=== PATIENT | male | born 1940 | race Caucasian/White ===

== ENCOUNTER 2016-11-30 13:54 | Inpatient (IN) | payer MEDICARE ==
[~2016-11-30] VITALS: Ht 180.3 cm; Wt 77.7 kg
[~2016-11-30 13:54] MED LIST: ALBUTERO1 NEB; ASPIRIN EC81 MG PO; ATORVASTATIN CA40 MG PO; BAYER ASPIRIN325 MG PO; BRILINTA90 MG PO; DIGOXIN0.125 MG PO; LISINOP/HCTZ1 TAB PO; PANTOPRAZOLE SO40 M1 PO; PREDNISONE10 MG PO; PROAIR HFA IN; ROBITUSSIN10 ML PO; SPIRIVA RE1.25 MCG/A IN; SYMBICORT1 AE1 IN; TAMSULOSIN HCL0.4 MG PO; TENORMIN50 MG PO; ULTRAM50 MG PO; XARELTO20 MG PO; ZITHROMAX500 MG PO; [UNRECOGNIZED DRUG - OTHER] PO
--- NOTE | 2016-11-30 14:32 | NUR ---
AT BEDSIDE TO ASSESS AND DISCUSS P.O.C..
[2016-11-30 15:05] LABS: HEMATOCRIT 35.5 % (39.0-50.0); HEMOGLOBIN 11.4 g/dl (14.0-18.0); IMMATURE GRANULOCYTES 1.1 % (0.0-1.0); MEAN CELL VOLUME 102.3 fL CALC (80.0-100.0); MEAN CORPUSCULAR HGB 32.9 pG CALC (26.0-32.0); MEAN CORPUSCULAR HGB CONC 32.1 g/L CALC (32.0-36.0); NEUT# 11.71 thou/uL (1.82-7.42); RED BLOOD COUNT 3.47 mill/uL (4.70-6.10); RED CELL DISTRI WIDTH 15.5 % (11.5-15.5)
[2016-11-30] MEDS ORDERED: DIGITEK0.125 M1 (15:08)
[2016-11-30] MEDS ORDERED: PROBIOTIC1 TAB PO (15:12)
[2016-11-30] MEDS ORDERED: SAW PALMETTO1 CAP (15:12)
[2016-11-30 15:20] LABS: INTERNATIONAL NORMALIZED RATIO 1.5 RATIO (0.7-1.3); PROTHROMBIN TIME 16.5 SECONDS (9.0-12.5)
[2016-11-30 15:24] LABS: ALBUMIN 3.4 g/dL (3.2-5.0); ALKALINE PHOSPHATASE 131 u/l (38-126); ANION GAP 11 (6-22 (CALC)); BILIRUBIN, TOTAL 0.8 mg/dL (0.0-1.4); BUN 28 mg/dL (8-23); BUN/CREATININE RATIO 26 (12-20 (CALC)); CALCIUM 9.3 mg/dL (8.4-10.2); CARBON DIOXIDE 33 mmol/l (22-30); CHLORIDE 104 mmol/l (95-108); CREATININE 1.1 mg/dL (0.7-1.3); GFR > 60 ML/MIN (>=60 (CALC)); GFR FOR AFR.AMER. > 60 ML/MIN (>=60 (CALC)); GLUCOSE 138 mg/dL (82-115); POTASSIUM 4.5 mmol/l (3.5-5.1); SGOT/AST 25 u/l (19-48); SGPT/ALT 44 u/l (11-66); SODIUM 143 mmol/l (137-146); TOTAL PROTEIN 6.9 g/dL (6.3-8.2)
--- NOTE | 2016-11-30 15:30 | NUR ---
Daughter AT BEDSIDE, Pt APPEARs COMFORTABLE, RESTING /c OU OPEN
[2016-11-30 15:36] LABS: MYOGLOBIN 45 ng/mL (0 - 121)
--- NOTE | 2016-11-30 16:18 | NUR ---
AT BEDSIDE TO REASSESS AND DISCUSS P.O.C.. Daughter PRESENT
--- NOTE | 2016-11-30 17:00 | NUR ---
IN TO DISCUSS POC, Dr WILL ADMIT. FULL UNDERSTQANDING RETURNED
[2016-11-30 17:35] LABS: URINE BILIRUBIN - DIPSTICK NEGATIVE (NEGATIVE); URINE BLOOD DIPSTICK NEGATIVE (NEGATIVE); URINE CLARITY CLEAR; URINE COLOR YELLOW; URINE GLUCOSE - DIPSTICK NEGATIVE (NEGATIVE); URINE KETONE NEGATIVE (NEGATIVE); URINE LEUK ESTERASE NEGATIVE (NEGATIVE); URINE NITRITE - DIPSTICK NEGATIVE (Negative); URINE PROTEIN - DIPSTICK TRACE mg/dL (NEG-TRACE); URINE SPECIFIC GRAVITY 1.025; URINE UROBILINOGEN - DIPSTICK 0.2 E.U./dL (0.2)
--- NOTE | 2016-11-30 18:04 | NUR ---
ATTEMPT TO CALL REPORT
[2016-11-30 18:20] VITALS: BP 114/72
--- NOTE | 2016-11-30 19:00 | NUR ---
RECEIVED REPORT ON PATIENT FROM OFF GOING NURSE. PATIENT RESTING IN BED IN NO APPARENT DISCOMFORT. DAUGHTER VISITING WITH PATIENT AT THIS TIME.
[2016-11-30 21:05] VITALS: BP 92/56
[2016-11-30 21:10] VITALS: BP 99/66
[2016-11-30 21:12] VITALS: BP 115/78
[2016-11-30 23:25] VITALS: BP 100/65
--- NOTE | 2016-12-01 | NUR ---
PATIENT RESTING QUIETLY. NO ACUTE DISTRESS NOTED.
--- NOTE | 2016-12-01 04:00 | NUR ---
PATIENT RESTING COMFORTABLY AT THIS TIME. NO ACUTE DISTRESS NOTED.
[2016-12-01 04:38] VITALS: BP 102/61
[2016-12-01 06:18] LABS: IMMATURE GRANULOCYTES 0.6 % (0.0-1.0); MEAN CELL VOLUME 102.9 fL CALC (80.0-100.0); MEAN CORPUSCULAR HGB 33.1 pG CALC (26.0-32.0); MEAN CORPUSCULAR HGB CONC 32.1 g/L CALC (32.0-36.0); NEUT# 5.24 thou/uL (1.82-7.42); RED BLOOD COUNT 2.72 mill/uL (4.70-6.10); RED CELL DISTRI WIDTH 15.6 % (11.5-15.5)
[2016-12-01 06:36] LABS: ANION GAP 9 (6-22 (CALC)); BUN 28 mg/dL (8-23); BUN/CREATININE RATIO 28 (12-20 (CALC)); CARBON DIOXIDE 30 mmol/l (22-30); CHLORIDE 107 mmol/l (95-108); GFR > 60 ML/MIN (>=60 (CALC)); GFR FOR AFR.AMER. > 60 ML/MIN (>=60 (CALC)); GLUCOSE 85 mg/dL (82-115); POTASSIUM 3.8 mmol/l (3.5-5.1); SODIUM 143 mmol/l (137-146)
[2016-12-01 07:30] VITALS: BP 104/53
--- NOTE | 2016-12-01 07:30 | NUR ---
PT ALERT AND ORIENTED RETING IN BED, SLIGHTLY RED DEVIL, AM ASESSMENT COMPLETED SEE INTERVENTIONS, SKIN DR AND FRAGILE WITH BREAKDOWN NOTED TO COOCYX, PT ADMITS TO SITTI IN A CHAIR ALL THE TIME AT HOME STATES HE HAS DIFFICULTY STANDING AND IS UNABLE TO AMBULATE RELATED TO INCREASING WEKANESS, PT POORLY MOTIVATED TO INCREASE ACTIVITY, STATING "WELL I ALREADY KNOW I CAN'T DO IT SO...." EXPLAINED TO PT THAT EVEN THOUGH HE CAN'T DO IT NOW HE NEEDS TO CONTINEU TO ATTEMPT AND PARTICIPATE TO IMPROVE STRENGTH ETC... PT APPEARS DISINTERESTED IN CONVERSATION, SAFETY MEASURES REINFORCED, IVF CONTINUE AT PRESCRIBED RATE, WILL CONTINUE TO MONITOR.
--- NOTE | 2016-12-01 08:00 | NUR ---
DAUGHTER CALLED FOR UPDATE STATING THAT SHE FEELS LIKE "DAD HAS JUST PROGRESSIVELY GOTTEN WORSE AND WEAKER SINCE HE HAD STENTS PLACED IN SEPTEMBER", STATES SHE WILL CHECK IN AGAIN LATER TODAY
--- NOTE | 2016-12-01 09:15 | NUR ---
IN TO SEE PT, PLAN OF CARE DISCUSED INCLDUING REHAB PLACEMENT POST HOSPITAL STAY.
--- NOTE | 2016-12-01 10:15 | NUR ---
PT EDWNI INTERMITTENLY, NO NEW COMPLAINTS OFFERED, WILL CONTINUE TO MONITOR
--- NOTE | 2016-12-01 11:37 | NUR ---
PT RESTING INBED, DOZES INTERMITTENLY AROUSES EASILY TO LOUDER VERBAL STIMULI (RELATED TO [place]) DENIES PAIN AT THIS TIME, AGAIN ENCOURAGED TO INCREASE ACTIVITY, (STATES "I WILL LATER I'M TO TIRED RIGHT NOW") WILL CONTINUE TO MONITOR
[2016-12-01 12:13] VITALS: BP 110/60
--- NOTE | 2016-12-01 16:22 | NUR ---
PT RESTING IN BED, DECLINED ADL CARE STATING TODAY HE IS JUST TO TIRED BUT WILL GET SHOWER TOMORROW, ENCOURAGED TO REPOSTION FREQURNTLY TO PREVENT FURTHER BREAKDONW, WILL CONTINUE TO MONITOR.CALL JULIAN WITHIN REACH,
[2016-12-01 16:30] VITALS: BP 100/56
[2016-12-01 20:16] VITALS: BP 97/61
--- NOTE | 2016-12-01 20:50 | NUR ---
PT RESTING IN SEMI FOWLERS POSITION;IV FLUIDS TO RAC INFUSING WELL;02 @ 2 LITERS VIA NC;PURSED LIP BREATHING TX EDUCATED AND PT VERBALIZES UNDERSTANDING;PT DENIES ANY PAIN OR DISCOMFORTS AT THIS TIME;TELE MONITOR IN PLACE READING AFIB 95;SKIN TEAR NOTED TO LEFT FOREARM PROJECT MANAGEMENT INSTRUCTOR;PRODUCTIVE COUGH NOTED;PT DENIES ANY OTHER NEEDS AT THIS TIME;URINAL AT BEDSIDE;PT RE-EDUCATED ON ROOM AND CALL LIGHT SYSTEM AND VERBALIZES UNDERSTANDING;BED IN LOWEST POSITION WITH CALL LIGHT IN REACH;WILL CONTINUE TO MONITOR
--- NOTE | 2016-12-01 23:30 | NUR ---
PT APPEARS TO BE SLEEPING IN SUPINE POSITION;IV FLUIDS INFUSING WELL;NO S/S OF DISTRESS NOTED;RESPIRATIONS EVEN AND UNLABORED ON 02 @ 2 VIA NC;URINAL AT BEDSIDE;BED IN LOWEST POSITION WITH CALL LIGHT IN REACH;WILL CONTINUE TO MONITOR
[2016-12-02] VITALS (9 sets, daily range): BP systolic 106–127; BP diastolic 49–72
--- NOTE | 2016-12-02 04:04 | NUR ---
PT RESTING IN SUPINE POSITION;VS OBTAINED BY ROSALIA CHAPPELL;PT REFUSES RE-POSITIONING;PT EDUCATED ON THE IMPORTANT OF BEING RE-POSITIONED ESPECIALLY WITH HAVING PRESSURE ULCERS;PT CONTINUES TO REFUSE;PT DENIES ANY PAINS;IV FLUIDS INFUSING WELL;BED IN LOWEST POSITION WITH CALL LIGHT IN REACH;WILL CONTINUE TO MONITOR
[2016-12-02 05:35] LABS: HEMATOCRIT 24.3 % (39.0-50.0); HEMOGLOBIN 7.7 g/dl (14.0-18.0); IMMATURE GRANULOCYTES 0.7 % (0.0-1.0); MEAN CELL VOLUME 102.5 fL CALC (80.0-100.0); MEAN CORPUSCULAR HGB 32.5 pG CALC (26.0-32.0); MEAN CORPUSCULAR HGB CONC 31.7 g/L CALC (32.0-36.0); NEUT# 4.49 thou/uL (1.82-7.42); RED BLOOD COUNT 2.37 mill/uL (4.70-6.10); RED CELL DISTRI WIDTH 15.6 % (11.5-15.5)
[2016-12-02 06:01] LABS: ANION GAP 7 (6-22 (CALC)); BUN 22 mg/dL (8-23); BUN/CREATININE RATIO 27 (12-20 (CALC)); CALCIUM 7.8 mg/dL (8.4-10.2); CARBON DIOXIDE 28 mmol/l (22-30); CHLORIDE 108 mmol/l (95-108); CREATININE 0.8 mg/dL (0.7-1.3); GFR > 60 ML/MIN (>=60 (CALC)); GFR FOR AFR.AMER. > 60 ML/MIN (>=60 (CALC)); GLUCOSE 96 mg/dL (82-115); POTASSIUM 3.8 mmol/l (3.5-5.1); SODIUM 139 mmol/l (137-146)
--- NOTE | 2016-12-02 06:40 | NUR ---
PT HAS NOT VOIDED ALL SHIFT;PT ENCOURAGED TO VOID;PT AMBULATED TO BEDSIDE COMMODE WITH 2 PERSON ASSIST AND WEAK GAIT;NO URINE OBTAINED;PT REFUSED ASSISTED BATH AT THIS TIME;BLADDER SCAN PREFORMED AND A RESIDUAL OF 470CC OBTAINED; NOTIFED AT THIS TIME;VOICEMAIL LEFT;WILL CONTINUE TO MONITOR
--- NOTE | 2016-12-02 06:45 | NUR ---
RBTO FROM TO STRAIGHT CATH PT AT THIS TIME;WILL CONTINUE TO MONITOR
--- NOTE | 2016-12-02 07:00 | NUR ---
SHIFT CHANGE REPORT FROM TERRENCE OLIVO AWAKE ALERT AND ORIENTED RESTING N BED, IVF INFUSING, NO C/O DISCOMFORT AT THIS TIME, CALL JULIAN IN REACH, WILL CONTINUE TO MONITOR.
--- NOTE | 2016-12-02 09:00 | NUR ---
PT ALERT AND ORIENTED, POC EXPLAINED TO PT, PLEASANTLY COOPERATIVE, GAYE CARE DONE, #V 16 HAMMER CATHETER PLACED PER ORDER, BARRIER CREAM APPLIED TO COCCYX/GLUTEUS AREA, REPOSITIONED ON R. SIDE AND ENCOURAGED TO KEEP OFF BACK. WILL CONTINUE TO MONITOR, CALL JULIAN IN REACH.
--- NOTE | 2016-12-02 09:30 | NUR ---
PT VOIDED 200ML BEFORE CATHETER PLACEMENT, 500ML OUT POST CATH INSERTION, DR CARUSO ORDERED CATHETER TO REMAIN UNTIL FURTHER NOTICE.
--- NOTE | 2016-12-02 15:35 | NUR ---
RESTING IN BED AT THIS TIME, INFORMED OF PRBC TRANSFUSION ORDER AND GAVE WRITTEN CONSENT, TRANSFUSION INITIATED AT THIS TIME, PT FULLY COOPERATIVE, CALL JULIAN IN REACH.
--- NOTE | 2016-12-02 20:03 | NUR ---
PT IN BED WATCHING TV, RESPIRATIONS EVEN AND UNLABORED ON RA, DENIES PAIN OR DISCOMFORT. NS INFUSING TO RW AT 50CC/HR. CALL LIGHT AND URINAL AT BED SIDE.
--- NOTE | 2016-12-02 20:20 | NUR ---
RESTING IN BED WATCHING TV, RESPIRATIONS EVEN AND UNLABORED ON O2 @2L VIA NC. REPOSITIONED TO RIGHT SIDE, TEACHING DONE R/T REPOSITIONING EVERY TWO HOURS. NS AT KVO INFUSING TO LFA, DENIES PAIN. ENCOURAGED TO USE CALL LIGHT FOR ASSISTANCE. WILL CONTINUE TO MONITOR.
--- NOTE | 2016-12-02 23:06 | NUR ---
REPOSITIONED TO LEFT SIDE. OFFERS NO CONCERNS. CALL LIGHT IN REACH.
--- NOTE | 2016-12-03 00:58 | NUR ---
REPOSITIONED TO LEFT SIDE.
[2016-12-03 03:33] VITALS: BP 121/74
--- NOTE | 2016-12-03 04:20 | NUR ---
MORNING BLOOD WORK DRAWN BY SOLAR ENERGY SALES SPECIALIST TOLERATED WELL.
[2016-12-03 05:21] LABS: HEMATOCRIT 27.9 % (39.0-50.0); IMMATURE GRANULOCYTES 0.8 % (0.0-1.0); MEAN CELL VOLUME 98.2 fL CALC (80.0-100.0); MEAN CORPUSCULAR HGB 31.7 pG CALC (26.0-32.0); MEAN CORPUSCULAR HGB CONC 32.3 g/L CALC (32.0-36.0); NEUT# 4.48 thou/uL (1.82-7.42); RED BLOOD COUNT 2.84 mill/uL (4.70-6.10); RED CELL DISTRI WIDTH 15.9 % (11.5-15.5)
[2016-12-03 05:42] LABS: ANION GAP 8 (6-22 (CALC)); BUN 14 mg/dL (8-23); BUN/CREATININE RATIO 18 (12-20 (CALC)); CALCIUM 8.1 mg/dL (8.4-10.2); CARBON DIOXIDE 29 mmol/l (22-30); CHLORIDE 107 mmol/l (95-108); CREATININE 0.8 mg/dL (0.7-1.3); GFR > 60 ML/MIN (>=60 (CALC)); GFR FOR AFR.AMER. > 60 ML/MIN (>=60 (CALC)); GLUCOSE 93 mg/dL (82-115); POTASSIUM 4.1 mmol/l (3.5-5.1); SODIUM 140 mmol/l (137-146)
[2016-12-03 08:20] VITALS: BP 124/83
--- NOTE | 2016-12-03 08:20 | NUR ---
ASSESSMENT IS COMPLETED: IV SITE IS FREE FROM REDNES OR EDEMA. CONTINUE TO OSBERVE AND MONOITOR
[2016-12-03 10:07] VITALS: BP 124/83
[2016-12-03] MEDS ORDERED: XARELTO15 MG PO (10:15)
[2016-12-03] MEDS ORDERED: ZESTRIL PO (10:17)
[2016-12-03] MEDS ORDERED: [UNRECOGNIZED DRUG - OTHER] PO (10:17)
--- NOTE | 2016-12-03 12:00 | NUR ---
PT IS RESTING IN BED WITH NO DISTRESS NOTED. IV SITE IN PLACE NO REDNES OR EDEMA.
--- NOTE | 2016-12-03 12:55 | NUR ---
PT WAS LAYING IN BED AND DID NOT SEEM TO UNDERSTAND WHAT I WAS SAYING. HE MENTIONED HE WAS BEING TRANSFERED SOMEWHERE AND WANTED ME TO CALL HIS DAUGTER WHICH I MADE THE NURSES AWARE.
--- NOTE | 2016-12-03 15:19 | NUR ---
IV SITE DISCONTINEUD CATHETER INTACT.TELE MONITOR DISCONTINUED . DISCHARGE PAPERS GIVEN TO RAVI FROM [facility],
--- NOTE | 2016-12-03 15:21 | NUR ---
HAMMER LEFT IN PLACE PT WAS HAVING ISSUES WITH VOIDING.
--- NOTE | 2016-12-03 15:39 | NUR ---
GAVE REPORT TO LORE FOLEY. CONTINUE TO OSBERVE AND MONITOR. INFORMED THE NURSE OF THE HAMMER AND DECUB ON HIS COCCYX.
--- NOTE | 2016-12-03 15:41 | NUR ---
Discharge instructions given. Patient verbalizes understanding of same. Discharged in stable condition via Wheelchair to R with *Other. All belongings sent with pt.
== END 2016-12-03 15:13 | DRG 811 ==
LOC: ENPENDDIS → ED 13:54 → ED-I 14:20 → ED 17:49 → MS2 17:50
PROVIDERS: Emergency Medicine; ADMIT Internal Medicine; ATTEND Internal Medicine
PROC: 3E0234Z Introduction of Serum, Toxoid and Vaccine into Muscle, Percutaneous Approach (ICD-10-PCS; principal; 2016-12-01)
PROC: 30233N1 Transfusion of Nonautologous Red Blood Cells into Peripheral Vein, Percutaneous Approach (ICD-10-PCS; 2016-12-02)
PROC: 0T9B70Z Drainage of Bladder with Drainage Device, Via Natural or Artificial Opening (ICD-10-PCS; 2016-12-02)
DX: D50.0 Iron deficiency anemia secondary to blood loss (chronic) (principal); J96.21 Acute and chronic respiratory failure with hypoxia; L89.152 Pressure ulcer of sacral region, stage 2; G91.9 Hydrocephalus, unspecified; N18.3 Chronic kidney disease, stage 3 (moderate); G93.89 Other specified disorders of brain; K62.5 Hemorrhage of anus and rectum; R04.0 Epistaxis; N48.89 Other specified disorders of penis; I12.9 Hypertensive chronic kidney disease with stage 1 through stage 4 chronic kidney disease, or unspecified chronic kidney disease; T45.515A Adverse effect of anticoagulants, initial encounter; I25.10 Atherosclerotic heart disease of native coronary artery without angina pectoris; I48.91 Unspecified atrial fibrillation; J44.9 Chronic obstructive pulmonary disease, unspecified; N40.1 Benign prostatic hyperplasia with lower urinary tract symptoms; R33.8 Other retention of urine; S20.219D Contusion of unspecified front wall of thorax, subsequent encounter; V89.2XXD Person injured in unspecified motor-vehicle accident, traffic, subsequent encounter; Z23 Encounter for immunization; Z87.891 Personal history of nicotine dependence; Z98.2 Presence of cerebrospinal fluid drainage device; Z99.81 Dependence on supplemental oxygen; Z95.5 Presence of coronary angioplasty implant and graft
CPT/HCPCS: P9016

== ENCOUNTER 2017-08-15 17:18 | Emergency (ER) | payer OTHER, MEDICARE ==
[~2017-08-15] VITALS: Ht 180.3 cm; Wt 55.0 kg
[~2017-08-15 17:18] MED LIST changes: +ASPIRIN ADULT L81 M2 PO; +B-121000 MC4 PO; +CYMBALTA60 MG PO; +DIGITEK0.125 M1; +FINASTERIDE5 MG PO; +FLONASE AL50 MCG/ACT NAB; +LANOXIN0.125 MG PO; +LISINOPRIL5 MG PO; +LOPRESSOR25 MG PO; +MULTIVITAMI1 PO; +PLAVIX75 MG PO; +PROBIOTIC1 TAB PO; +PROVENTIL0.083 % IN; +SAVAYSA30 MG PO; +SAVAYSA60 MG PO; +SAW PALMETTO1 CAP; +SPIRIVA RE2.5 MCG/AC IN; +XARELTO15 MG PO; +ZESTRIL PO; +[UNRECOGNIZED DRUG - OTHER] PO
[2017-08-15 17:54] LABS: HEMATOCRIT 26.2 % (39.0-50.0); HEMOGLOBIN 8.4 g/dl (14.0-18.0); IMMATURE GRANULOCYTES 0.4 % (0.0-1.0); MEAN CORPUSCULAR HGB 32.1 pG CALC (26.0-32.0); MEAN CORPUSCULAR HGB CONC 32.1 g/L CALC (32.0-36.0); NEUT# 4.94 thou/uL (1.82-7.42); RED BLOOD COUNT 2.62 mill/uL (4.70-6.10)
[2017-08-15 18:01] LABS: ALBUMIN 3.3 g/dL (3.2-5.0); BILIRUBIN, TOTAL 0.5 mg/dL (0.0-1.4); CALCIUM 8.8 mg/dL (8.4-10.2); CREATININE 1.7 mg/dL (0.7-1.3); TOTAL PROTEIN 6.4 g/dL (6.3-8.2)
[2017-08-15 18:03] LABS: ACT PARTIAL THROMBO TIME 27.6 SECONDS (20.0-32.5); INTERNATIONAL NORMALIZED RATIO 1.2 RATIO (0.7-1.3); PROTHROMBIN TIME 12.9 SECONDS (9.0-12.5)
[2017-08-15 18:42] VITALS: BP 173/86
== END 2017-08-15 19:48 | disposition home or self-care (01) | DRG 813 ==
LOC: ED 17:18
PROVIDERS: Emergency Medicine
DX: R23.3 Spontaneous ecchymoses (principal); I48.91 Unspecified atrial fibrillation; R60.9 Edema, unspecified; Z79.82 Long term (current) use of aspirin

== ENCOUNTER 2017-12-01 08:17 | Inpatient (IN) | payer OTHER, MEDICARE ==
[~2017-12-01] VITALS: Ht 180.3 cm; Wt 58.1 kg
[~2017-12-01 08:17] MED LIST changes: +AMLODIPINE2.5 MG PO; +AVODART0.5 MG PO; +ELIQUIS5 MG PO
[2017-12-01 09:46] LABS: HEMATOCRIT 36.6 % (39.0-50.0); HEMOGLOBIN 12.2 g/dl (14.0-18.0); IMMATURE GRANULOCYTES 0.4 % (0.0-1.0); MEAN CELL VOLUME 96.3 fL CALC (80.0-100.0); MEAN CORPUSCULAR HGB 32.1 pG CALC (26.0-32.0); MEAN CORPUSCULAR HGB CONC 33.3 g/L CALC (32.0-36.0); NEUT# 8.62 thou/uL (1.82-7.42); RED BLOOD COUNT 3.8 mill/uL (4.70-6.10); RED CELL DISTRI WIDTH 12.8 % (11.5-15.5)
[2017-12-01 09:50] LABS: URINE BLOOD DIPSTICK LARGE (NEGATIVE); URINE COLOR RED; URINE GLUCOSE - DIPSTICK NEGATIVE (NEGATIVE); URINE KETONE TRACE mg/dL (NEGATIVE); URINE LEUK ESTERASE TRACE (NEGATIVE); URINE PH 5.5 (4.5-8.0); URINE PROTEIN - DIPSTICK >=300 mg/dL (NEG-TRACE); URINE UROBILINOGEN - DIPSTICK 0.2 E.U./dL (0.2)
[2017-12-01 09:53] LABS: URINE BILIRUBIN - DIPSTICK NEGATIVE (NEGATIVE); URINE CLARITY TURBID; URINE NITRITE - DIPSTICK NEGATIVE (Negative)
[2017-12-01 09:54] LABS: URINE BACTERIA FEW hpf; URINE MUCUS FEW hpf (NONE-FEW); URINE RBC >100 RBC/hpf (0-5); URINE SQUAMOUS EPITHELIAL CELL FEW EPI/hpf (0-FEW)
[2017-12-01 10:00] LABS: ALBUMIN 3.7 g/dL (3.2-5.0); BILIRUBIN, TOTAL 0.6 mg/dL (0.0-1.4); CREATININE 2.7 mg/dL (0.7-1.3); TOTAL PROTEIN 7.2 g/dL (6.3-8.2)
[2017-12-01 10:01] LABS: INTERNATIONAL NORMALIZED RATIO 1.1 RATIO (0.7-1.3); PROTHROMBIN TIME 11.8 SECONDS (9.0-12.5)
[2017-12-01 10:07] LABS: POTASSIUM 5.4 mmol/l (3.5-5.1)
[2017-12-01 11:45] VITALS: BP 106/77
[2017-12-01 16:00] VITALS: BP 121/81
[2017-12-01 20:35] VITALS: BP 125/74
[2017-12-02] VITALS (10 sets, daily range): BP systolic 103–131; BP diastolic 59–77
[2017-12-02 05:33] LABS: RED BLOOD COUNT 2.84 mill/uL (4.70-6.10)
[2017-12-02 05:44] LABS: CREATININE 2.6 mg/dL (0.7-1.3); MAGNESIUM 1.8 mg/dL (1.6-2.3)
[2017-12-02 05:48] LABS: POTASSIUM 5.2 mmol/l (3.5-5.1)
[2017-12-02 06:08] LABS: HEMATOCRIT 28.4 % (39.0-50.0); HEMOGLOBIN 9.1 g/dl (14.0-18.0)
[2017-12-03 04:30] VITALS: BP 127/71
[2017-12-03 06:01] LABS: CREATININE 2.5 mg/dL (0.7-1.3)
[2017-12-03 06:03] LABS: HEMATOCRIT 25.5 % (39.0-50.0); HEMOGLOBIN 8.4 g/dl (14.0-18.0); IMMATURE GRANULOCYTES 0.5 % (0.0-1.0); MEAN CORPUSCULAR HGB 32.9 pG CALC (26.0-32.0); MEAN CORPUSCULAR HGB CONC 32.9 g/L CALC (32.0-36.0); NEUT# 5.08 thou/uL (1.82-7.42); RED BLOOD COUNT 2.55 mill/uL (4.70-6.10); RED CELL DISTRI WIDTH 13.2 % (11.5-15.5)
[2017-12-03 06:08] LABS: POTASSIUM 5.3 mmol/l (3.5-5.1)
[2017-12-03 08:39] VITALS: BP 113/55
[2017-12-03 16:00] VITALS: BP 122/76
== END 2017-12-03 17:03 | disposition home or self-care (01) | DRG 908 ==
LOC: ED 08:17 → ED-I 10:05 → ED 10:33 → MS2 10:34
PROVIDERS: Emergency Medicine; Nurse Practitioner Family; Urology; ADMIT Internal Medicine; ATTEND Internal Medicine
PROC: 0T9B70Z Drainage of Bladder with Drainage Device, Via Natural or Artificial Opening (ICD-10-PCS; 2017-12-01)
PROC: 0W3R8ZZ Control Bleeding in Genitourinary Tract, Via Natural or Artificial Opening Endoscopic (ICD-10-PCS; principal; 2017-12-02)
PROC: 0TCB8ZZ Extirpation of Matter from Bladder, Via Natural or Artificial Opening Endoscopic (ICD-10-PCS; 2017-12-02)
DX: N99.820 Postprocedural hemorrhage of a genitourinary system organ or structure following a genitourinary system procedure (principal); G91.9 Hydrocephalus, unspecified; J96.11 Chronic respiratory failure with hypoxia; N17.9 Acute kidney failure, unspecified; D62 Acute posthemorrhagic anemia; R33.8 Other retention of urine; I48.91 Unspecified atrial fibrillation; R31.0 Gross hematuria; J43.9 Emphysema, unspecified; I12.9 Hypertensive chronic kidney disease with stage 1 through stage 4 chronic kidney disease, or unspecified chronic kidney disease; N18.3 Chronic kidney disease, stage 3 (moderate); F10.11 Alcohol abuse, in remission; I25.10 Atherosclerotic heart disease of native coronary artery without angina pectoris; H35.30 Unspecified macular degeneration; Y83.8 Other surgical procedures as the cause of abnormal reaction of the patient, or of later complication, without mention of misadventure at the time of the procedure; Z98.2 Presence of cerebrospinal fluid drainage device; Z95.5 Presence of coronary angioplasty implant and graft; Z87.891 Personal history of nicotine dependence; Z99.81 Dependence on supplemental oxygen; Z79.01 Long term (current) use of anticoagulants

== ENCOUNTER 2019-10-08 | Emergency (ER) | payer MEDICARE ==
[2019-10-08 13:23] LABS: HEMATOCRIT 43.9 % (39.0-50.0); HEMOGLOBIN 14.1 g/dl (14.0-18.0); IMMATURE GRANULOCYTES 0.3 % (0.0-5.0); MEAN CELL VOLUME 102.1 fL CALC (80.0-100.0); MEAN CORPUSCULAR HGB 32.8 pG CALC (26.0-32.0); MEAN CORPUSCULAR HGB CONC 32.1 g/L CALC (32.0-36.0); NEUT# 9.21 thou/uL (1.82-7.42); RED BLOOD COUNT 4.3 mill/uL (4.70-6.10)
[2019-10-08 13:46] LABS: ALBUMIN 3.9 g/dL (3.2-5.0); ALKALINE PHOSPHATASE 136 u/l (38-126); ANION GAP 16 (6-22 (CALC)); BILIRUBIN, TOTAL 0.6 mg/dL (0.0-1.4); BUN 59 mg/dL (8-23); BUN/CREATININE RATIO 22 (12-20 (CALC)); CARBON DIOXIDE 28 mmol/l (22-30); CHLORIDE 103 mmol/l (95-108); CREATININE 2.7 mg/dL (0.7-1.3); GFR 23 ML/MIN (>=60 (CALC)); GFR FOR AFR.AMER. 28 ML/MIN (>=60 (CALC)); MAGNESIUM 2.4 mg/dL (1.6-2.3); POTASSIUM 4.4 mmol/l (3.5-5.1); SGOT/AST 45 u/l (19-48); SODIUM 142 mmol/l (137-146); TOTAL PROTEIN 7.7 g/dL (6.3-8.2)
[2019-10-08] MEDS ORDERED: ALLOPURINOL100 MG PO (14:19)
[2019-10-08] MEDS ORDERED: ARTIFICIAL TEAR1 SOL (14:20)
[2019-10-08] MEDS ORDERED: BUMETANIDE1 MG PO (14:20)
[2019-10-08] MEDS ORDERED: IPRATROPIUM BR0.03 % (14:21)
[2019-10-08] MEDS ORDERED: LORATADINE10 M1 PO (14:22)
[2019-10-08 14:24] LABS: URINE BILIRUBIN - DIPSTICK NEGATIVE (NEGATIVE); URINE BLOOD DIPSTICK MODERATE (NEGATIVE); URINE COLOR YELLOW; URINE GLUCOSE - DIPSTICK NEGATIVE (NEGATIVE); URINE KETONE NEGATIVE (NEGATIVE); URINE LEUK ESTERASE NEGATIVE (NEGATIVE); URINE NITRITE - DIPSTICK NEGATIVE (Negative); URINE PROTEIN - DIPSTICK 100 mg/dL (NEG-TRACE); URINE SPECIFIC GRAVITY 1.025; URINE UROBILINOGEN - DIPSTICK 0.2 E.U./dL (0.2)
[2019-10-08 14:56] LABS: URINE SQUAMOUS EPITHELIAL CELL FEW EPI/hpf (0-FEW)
[2019-10-08 15:40] LABS: INTERNATIONAL NORMALIZED RATIO 1.1 RATIO (0.7-1.3); PROTHROMBIN TIME 11.4 SECONDS (9.0-12.5)
== END 2019-10-08 20:17 | disposition short-term general hospital (02) ==
PROVIDERS: Emergency Medicine
DX: T85.09XA Other mechanical complication of ventricular intracranial (communicating) shunt, initial encounter (principal); J44.9 Chronic obstructive pulmonary disease, unspecified; I12.9 Hypertensive chronic kidney disease with stage 1 through stage 4 chronic kidney disease, or unspecified chronic kidney disease; N18.4 Chronic kidney disease, stage 4 (severe); G91.9 Hydrocephalus, unspecified; Y83.8 Other surgical procedures as the cause of abnormal reaction of the patient, or of later complication, without mention of misadventure at the time of the procedure

== ENCOUNTER 2021-01-14 09:57 | Inpatient (IN) | payer OTHER, MEDICARE ==
[~2021-01-14] VITALS: Ht 188 cm; Wt 65.0 kg
[~2021-01-14 09:57] MED LIST changes: +ALLOPURINOL100 MG PO; +ARTIFICIAL TEAR1 SOL; +BUMETANIDE1 MG PO; +IPRATROPIUM BR0.03 %; +LORATADINE10 M1 PO
--- NOTE | 2021-01-14 09:57 | NUR ---
TO ROOM VIA EMS
--- NOTE | 2021-01-14 10:30 | NUR ---
DAUGHTER AT BEDSIDE
[2021-01-14 10:39] LABS: HEMATOCRIT 34.1 % (39.0-50.0); HEMOGLOBIN 10.7 g/dl (14.0-18.0); IMMATURE GRANULOCYTES 0.6 % (0.0-5.0); MEAN CELL VOLUME 102.1 fL CALC (80.0-100.0); MEAN CORPUSCULAR HGB CONC 31.4 g/dL CAL (32.0-36.0); NEUT# 10.84 thou/uL (1.82-7.42); RED BLOOD COUNT 3.34 mill/uL (4.70-6.10); RED CELL DISTRI WIDTH 14.6 % (11.5-15.5)
--- NOTE | 2021-01-14 10:43 | NUR ---
PATIENT POSITIONED FOR COMFORT. CALL JULIAN IN REACH
[2021-01-14 10:59] LABS: ACT PARTIAL THROMBO TIME 25.1 SECONDS (20.0-32.5); INTERNATIONAL NORMALIZED RATIO 1.2 RATIO (0.7-1.3)
[2021-01-14] MEDS ORDERED: IRON325 M1 PO (11:04)
[2021-01-14 11:05] LABS: ALBUMIN 3.5 g/dL (3.2-5.0); CREATININE 3.4 mg/dL (0.7-1.3); POTASSIUM 4.4 mmol/l (3.5-5.1); TOTAL PROTEIN 7.3 g/dL (6.3-8.2)
[2021-01-14 11:10] LABS: BILIRUBIN, TOTAL 0.6 mg/dL (0.0-1.4)
--- NOTE | 2021-01-14 12:00 | NUR ---
resting quietly. no distress. Feeling better
--- NOTE | 2021-01-14 13:37 | NUR ---
REPORT RECEIVED FROM ALAINA LORENZANA
--- NOTE | 2021-01-14 13:38 | NUR ---
report called in SBAR format to Landon FOLEY
--- NOTE | 2021-01-14 14:00 | NUR ---
PATIENT TO NUCLEAR SCAN AND THEN WILL GO VIA RN TRANNSPORT TO ROOM 272. PATIENT STABLE UPON DEPARTUR.
[2021-01-14 14:16] VITALS: BP 136/78
--- NOTE | 2021-01-14 14:16 | NUR ---
PT ARRIVED TO MED/SURG ROOM 272 IN STABLE CONDITION VIA STRETCHER ACCOMPANIED BY ALAINA ROSSI;PT ASSISTED TO BEDSIDE WITH X3 PERSON ASSIST;PT A&O X3, ORIENTED TO ROOM AND CALL LIGHT SYSTEM;WT AND VS OBTAINED AT THIS TIME;PT DENIES ANY CURRENT PAIN OR DISCOMFORTS,PAIN SCALE AND REPORTING EDUCATED;RESPIRATIONS SHALLOW ON O2 @ 3L VIA NC, PT IS OXYGEN DEPENDENT ON 2L;DIMINISHED LUNG SOUNDS NOTED;ABDOMEN SOFT ON PALPATION AND ACTIVE IN ALL 4 QUADRANTS,LAST BM 01/14/21;WEAK PEDAL PULSES;GENERALIZED BRUSING NOTED,SKIN OTHERWISE INTACT;TELE MONITORING IN PLACE;EMS #20G TO LFA FLUSHED AND PATENT,SITE APPEARS HEALTHY AND NS STARTED @50ML/HR PER ORDER;FALL AND ALLERGY BAND APPLIED;PT DENIES ANY ADDITIONAL NEEDS AT THIS TIME AND IS ENCOURAGED TO CALL FOR ASSISTANCE IF NEEDED;FALL PRECAUTIONS IN PLACE WITH BED IN THE LOWEST POSITION AND BED ALARM ON FOR SAFETY;CALL LIGHT IN REACH;WILL CONTINUE TO MONITOR
--- NOTE | 2021-01-14 14:42 | NUR ---
CRITICAL PROCALCITONIN RESULTS RECEIVED FROM LAB AT THIS TIME OF 0.339. SOBIA ANRP NOTIFIED AND NO NEW ORDERS RECEIVED.WILL CONTINUE TO MONITOR
--- NOTE | 2021-01-14 15:27 | NUR ---
PT RESTING IN SEMI FOWLERS POSITION WATCHING TV;RESPIRATIONS EVEN AND UNLABORED ON O2 @ 3L VIA NC;PT DENIES ANY CURRENT PAIN OR DISCOMFORTS;IV SITE PATENT INFUSING NS WITH EASE;PT ENCOURAGED TO CALL FOR ASSISTANCE IF NEEDED;FALL PRECAUTIONS REMAIN IN PLACE WITH CALL LIGHT IN REACH;WILL CONTINUE TO MONITOR
[2021-01-14] MEDS ORDERED: VITAMIN D1000 UNIT PO (15:33)
[2021-01-14] MEDS ORDERED: ELIQUIS2.5 MG PO (15:33)
[2021-01-14] MEDS ORDERED: DSS100 MG PO (15:34)
[2021-01-14] MEDS ORDERED: PRILOSEC20 MG/CAP PO (15:34)
--- NOTE | 2021-01-14 17:04 | NUR ---
MEAGAN AND SOBIA,ANRP AT BEDSIDE DISCUSSING POC.
[2021-01-14 17:15] LABS: URINE BILIRUBIN - DIPSTICK NEGATIVE (NEGATIVE); URINE BLOOD DIPSTICK LARGE (NEGATIVE); URINE COLOR YELLOW; URINE GLUCOSE - DIPSTICK NEGATIVE (NEGATIVE); URINE KETONE TRACE mg/dL (NEGATIVE); URINE PH 6.5 (4.5-8.0); URINE PROTEIN - DIPSTICK >=300 mg/dL (NEG-TRACE); URINE SPECIFIC GRAVITY 1.025; URINE UROBILINOGEN - DIPSTICK 0.2 E.U./dL (0.2)
[2021-01-14 17:29] LABS: URINE LEUK ESTERASE SMALL (NEGATIVE); URINE NITRITE - DIPSTICK NEGATIVE (Negative)
[2021-01-14 17:41] LABS: URINE AMORPH SEDIMENT FEW hpf (NONE-FER); URINE BACTERIA FEW hpf
[2021-01-14 19:00] VITALS: BP 132/89
--- NOTE | 2021-01-14 20:00 | NUR ---
PHYSICAL ASSESMENT COMPLETE. PT CURRENTLY DENIES PAIN OR DISCOMFORT. SCHEDULED MEDICATIONS AND PRN MEDICATION ADMINISTERED, SEE E-MAR. PT DENIES ANY NEEDS AT THIS TIME. PLAN OF CARE REVIEWED, PT DENIES QUESTIONS, VERBALIZES UNDERSTANDING. ITEMS WITHIN REACH, BED LOCKED IN LOW POSITION W/ BEDRAILS UP X2. CALL JULIAN WITHIN REACH, AGREES TO CALL PRN.
[2021-01-15] VITALS (7 sets, daily range): BP systolic 114–148; BP diastolic 60–91
--- NOTE | 2021-01-15 01:21 | NUR ---
PT LAYING IN BED WITH EYES CLOSED, APPEARS TO BE SLEEPING, APPEARS COMFORTABLE AND IN NO DISTRESS. RESPIRATIONS REGULAR AND UNLABORED. ITEMS REMAIN WITHIN REACH, CALL JULIAN REMAINS WITHIN REACH. BED REMAINS LOCKED AND IN LOW POSITION WITH BEDRAILS UP X2. WILL CONTINUE TO MONITOR.
--- NOTE | 2021-01-15 03:53 | NUR ---
PT RESTING IN BED, NO SIGNS OF DISTRESS NOTED, RESP EVEN AND UNLABORED. PT VOICES NO NEEDS OR COMPLAINTS AT THIS TIME. CALL LIGHT IN REACH, CONTINUE TO MONITOR.
[2021-01-15 06:00] LABS: HEMATOCRIT 30.4 % (39.0-50.0); HEMOGLOBIN 9.3 g/dl (14.0-18.0); MEAN CELL VOLUME 102.4 fL CALC (80.0-100.0); MEAN CORPUSCULAR HGB 31.3 pG CALC (26.0-32.0); MEAN CORPUSCULAR HGB CONC 30.6 g/dL CAL (32.0-36.0); RED BLOOD COUNT 2.97 mill/uL (4.70-6.10); RED CELL DISTRI WIDTH 14.4 % (11.5-15.5)
[2021-01-15 06:24] LABS: CHOLESTEROL HDL RATIO 2.5 (<4.4 (CALC)); CREATININE 3.6 mg/dL (0.7-1.3); MAGNESIUM 2.4 mg/dL (1.6-2.3); POTASSIUM 4.7 mmol/l (3.5-5.1)
--- NOTE | 2021-01-15 07:45 | NUR ---
REPORT RECEIVED FROM ALAINA BURGESS. PT RESTING IN BED SEMI FOWLERS;ALERT AND ORIENTED; HARD OF HEARING. DENIES PAIN.RESPIRATIONS EVEN AND UNLABORED ON OXYGEN 2L VIA NC; HOME DEPENDENT. IV FLUIDS INFUSING WITHOUT DIFFICULTY; IV SITE APPEARS HEALTHY. TELE ON. POC REVIEWED. PT ENCOURAGED TO VERBALIZE CONCERNS; STATES UNDERSTANDING.SAFETY MEASURES IN PLACE. CALL LIGHT WITHIN REACH.
--- NOTE | 2021-01-15 10:08 | NUR ---
EMS SITE REMOVED; CATH TIP INTACT; P TOLERATED WELL.NEW #20G IV STARTED TO RAC; NORMAL SALINE CONTINUES TO INFUSE AT 50 ML/HR.
--- NOTE | 2021-01-15 10:11 | NUR ---
AND NILE RAMSAY AT BEDSIDE.
--- NOTE | 2021-01-15 10:18 | NUR ---
PHYSICAL THERAPY AT BEDSIDE.
--- NOTE | 2021-01-15 10:44 | NUR ---
VERY SOB WITH EXERTION. INCONTINENT OF BOWEL MOVEMENT; PARTIAL BATH PROVIDED.
--- NOTE | 2021-01-15 12:23 | NUR ---
SITTING UP IN HIGH FOWLERS EATING LUNCH; NO REQUESTS OR CONCERNS AT THIS TIME. CALL LIGHT WITHIN REACH.
--- NOTE | 2021-01-15 13:42 | NUR ---
DAUGHTER AT BEDSIDE.
[2021-01-16 04:15] VITALS: BP 119/70
[2021-01-16 05:07] LABS: HEMATOCRIT 27.3 % (39.0-50.0); HEMOGLOBIN 8.5 g/dl (14.0-18.0); MEAN CELL VOLUME 101.9 fL CALC (80.0-100.0); MEAN CORPUSCULAR HGB 31.7 pG CALC (26.0-32.0); MEAN CORPUSCULAR HGB CONC 31.1 g/dL CAL (32.0-36.0); RED BLOOD COUNT 2.68 mill/uL (4.70-6.10); RED CELL DISTRI WIDTH 14.6 % (11.5-15.5)
[2021-01-16 05:17] LABS: MAGNESIUM 2.4 mg/dL (1.6-2.3); POTASSIUM 4.2 mmol/l (3.5-5.1)
[2021-01-16 07:20] VITALS: BP 133/75
--- NOTE | 2021-01-16 07:30 | NUR ---
ASSESSMENT IS COMPLETED: IV SITE IS FREE FROM REDNESS OR EDEMA. HR IS REG,PULSES ARE STRONG X4, ABD IS SOFT WITH ACTIVE BS. BREATH SOUNDS ARE CLEAR,AND DIMINISHED BILATERALLY, TELE MONITOR IN PLACE. PT IS SITTING IN THE CHAIR.,
--- NOTE | 2021-01-16 07:51 | NUR ---
ADMINISTERED PRN AEROSOLIZED BRONCHODILATOR THERAPY. PT RAGINI WELL. NAD. VSS. HEALTH PROGRAM DIRECTOR TO MONITOR.
--- NOTE | 2021-01-16 10:26 | NUR ---
SPOKE WITH DAUGHTER RE: AVODART (DUTASTERIDE). WILL BRING WITH HER AT TIME OF VISIT.
[2021-01-16 11:00] VITALS: BP 147/94
--- NOTE | 2021-01-16 12:00 | NUR ---
PT IS RELAXING IN THE CHAIR., NO DISTRESS NOTED. READY TO GO BACK TO BED, IV SITE IS FREE FROM REDNESS OR EDEMA. CONTINUE TO OBSERVE AND MONITOR.
--- NOTE | 2021-01-16 13:32 | NUR ---
SPOKE WITH US THE TECH MAY OR MAYNOT BE IN TONIGHT. MEDICATION FROM HOME BROUGHT IN
--- NOTE | 2021-01-16 14:38 | NUR ---
FAMILY WILL BRING DENTURE CREAM AND INQUIRED ABOUT THROAT LOZENGES
[2021-01-16 14:56] VITALS: BP 137/87
--- NOTE | 2021-01-16 14:57 | NUR ---
ENTRY LEVEL PROGRAMMER ADMIN PRN NEB. PT RAGINI WELL AT THIS TIME. NAD. VSS. PT C C/O SOB. STATES HE FEELS BETTER NOW. ENTRY LEVEL PROGRAMMER TO MONITOR.
[2021-01-16 19:25] VITALS: BP 152/81
--- NOTE | 2021-01-16 20:00 | NUR ---
PT IN BED AT TIME OF ASSESSMENT, ASSESSMENT COMPLETED, PLEASE SEE DCUMENTATION. PT HAS BEEN RUNNING A HIGH HEART RATE ALL DAY, PT IS A POOR HISTORIAN AND ISN'T ABLE TO REMEBER HIS NORMAL RESTING HR. LATEST TELE READING SHOWS AFIB 124BPM. PT DENIES ANY SYMPTOMS RELATED TO HR, INCLUDING, SOB, PALPITATIONS, AND/OR CHEST PAIN. WILL MONITOR.
--- NOTE | 2021-01-16 23:00 | NUR ---
THIS NURSE RECIVED CALL FROM ER INDICATING PT HAS A HEART RATE BETWEEN 120-130'S AFIB RVR. NOTIFIED PHYSICIAN OF HR AND RVR, NEW ORDER RECEIVED FOR ONE ADDITIONAL DOSE OF LOPRESSOR 25MG OLGA LIDIA AND INDICATED HE WILL REEVALUATE FOR MED ADJUSTMENTS TOMORROW. ORDER WRITTEN AND FAXED TO PHARMACY. WILL MONITOR PT FOR ANY COMPLICATIONS
[2021-01-17] VITALS: BP 136/89
--- NOTE | 2021-01-17 00:15 | NUR ---
OF MIDNIGHT TELE READING PT IS NOW RUNNING AFIB 116. MEDICATION, LOPRESSOR, WAS JUST ADMINSTERED AT 2330. WILL CHECK VITALS AGAIN AT 0030 TO CHECK FOR EFFETIVENESS OF MEDICATION.
[2021-01-17 00:30] VITALS: BP 136/83
--- NOTE | 2021-01-17 00:30 | NUR ---
PT VS RECHECKED AND PULSE IS NOW AT 188 BPM. WILL REEVALUATE ON 399 TELE READING
[2021-01-17 03:30] VITALS: BP 137/86
--- NOTE | 2021-01-17 04:17 | NUR ---
PT RESTING COMFORTABLY IN BED WITH EYES CLOSED. O2 REMAINS AT 2L/MIN VIA NC. NO COMPLAINTS VOICED. DENIES PAIN. SAFETY PRECAUTIONS IN PLACE, BED IN LOWEST POSITION, CALL LIGHT WITHIN REACH. WILL MONITOR
[2021-01-17 04:53] LABS: HEMATOCRIT 26.4 % (39.0-50.0); HEMOGLOBIN 8.2 g/dl (14.0-18.0); IMMATURE GRANULOCYTES 0.7 % (0.0-5.0); MEAN CELL VOLUME 100.8 fL CALC (80.0-100.0); MEAN CORPUSCULAR HGB 31.3 pG CALC (26.0-32.0); MEAN CORPUSCULAR HGB CONC 31.1 g/dL CAL (32.0-36.0); NEUT# 9.91 thou/uL (1.82-7.42); RED BLOOD COUNT 2.62 mill/uL (4.70-6.10)
[2021-01-17 05:21] LABS: BILIRUBIN, TOTAL 0.4 mg/dL (0.0-1.4); CREATININE 4.3 mg/dL (0.7-1.3)
[2021-01-17 05:22] LABS: POTASSIUM 4.5 mmol/l (3.5-5.1)
[2021-01-17 05:39] LABS: ALBUMIN 2.7 g/dL (3.2-5.0); TOTAL PROTEIN 5.6 g/dL (6.3-8.2)
--- NOTE | 2021-01-17 05:52 | NUR ---
RECEIVED CALL FROM LAB TO REPORT A CRITICAL LAB VALUE, BUN 80 CREATINE 4.3. PT IS DIAGNOSED WITH STAGE 4 CKD AND VALUES HAVE BEEN TRENDING UP SINCE ADMIT. CLAY DRY PRESS OPERATOR PHYSICIAN NOTIFIED OF CRITICAL LAB VALUES, NO NEW ORDERS RECIVED AT THIS TIME. WILL CONTINUE TO MONITOR
--- NOTE | 2021-01-17 07:08 | NUR ---
PT RESTING COMFORRTABLY IN BED, SUPINE. MAD. VSS. FENCE INSTALLER HELPER TO MONIOTOR. PT STATES HE ISREADY TO GO HOME AND SEE HIS DOG. CAN I HELP MAKE THAT HAPPEN.
[2021-01-17 07:58] VITALS: BP 110/52
--- NOTE | 2021-01-17 08:06 | NUR ---
PT RESTING IN THE BED, AXOX3, O2 2L NC IN PLACE, NO SOB , NO RESP DISTRESS NOTED AT THIS TIME. EDUCATED ON TELE MONITOR. PT DENIES PAIN. LOTION APPLIED TO BOTTOM. REPOSITIONED FOR BREAKFAST. SIDE RAILS UP CALL LIGHT IN REACH, BED LOCKED IN LOW POSITION, ALL SAFTY MEASURES IN PLACE, WILL CONTINUE TO MONIOTR THE PATIENT.
--- NOTE | 2021-01-17 09:00 | NUR ---
OUT OF THE BED TO THE BEDSIDE CHAIR WITH ASST. [address] CALL LIGHT IN REACH. PROVIDER AT THE CHAIR SIDE. PT EDUCATED IN NEW IV MEDICATION. WILL CONTINUE TO MONITOR THE PATIENT.
[2021-01-17 10:05] VITALS: BP 141/86
[2021-01-17] MEDS ORDERED: LOPRESSOR25 MG PO (10:21)
[2021-01-17] MEDS ORDERED: ZPAK PO (10:23)
[2021-01-17] MEDS ORDERED: MEDDOSEPAK PO (10:23)
--- NOTE | 2021-01-17 11:04 | NUR ---
CALLED DAUGHTER, INFORMED OF PENDING DISCHAGRE. H.L. REMOVED TIP INTACT.
--- NOTE | 2021-01-17 11:34 | NUR ---
DISCHARGE ORDER SIGNED BY THE PATIENT. PATIENTS HOMES MEDS GIVEN TO THE PT. PATIENT WAITING FOR HIS RIDE. TELE REMOVED.
--- NOTE | 2021-01-17 12:33 | NUR ---
D/C ORDERS EXPLAINED TO FAMILY MEMBER. PT LEFT WITH FAMILY MEMBER TO GO TO HIS OWN HOME. ALL QUESTIONS ANSWERED.
== END 2021-01-17 12:27 | disposition home health service (06) | DRG 190 ==
LOC: ED 09:57 → ED-I 12:10 → ED 12:31 → MS2 12:32
PROVIDERS: Nurse Practitioner; ADMIT Internal Medicine; ATTEND Internal Medicine
DX: J43.9 Emphysema, unspecified (principal); J96.21 Acute and chronic respiratory failure with hypoxia; K85.90 Acute pancreatitis without necrosis or infection, unspecified; N18.4 Chronic kidney disease, stage 4 (severe); G91.9 Hydrocephalus, unspecified; N17.9 Acute kidney failure, unspecified; I48.20 Chronic atrial fibrillation, unspecified; D63.8 Anemia in other chronic diseases classified elsewhere; I12.9 Hypertensive chronic kidney disease with stage 1 through stage 4 chronic kidney disease, or unspecified chronic kidney disease; I25.10 Atherosclerotic heart disease of native coronary artery without angina pectoris; Z87.891 Personal history of nicotine dependence; Z98.2 Presence of cerebrospinal fluid drainage device; Z95.5 Presence of coronary angioplasty implant and graft; Z99.81 Dependence on supplemental oxygen; Z20.822 Contact with and (suspected) exposure to COVID-19
CPT/HCPCS: A9540; A9567; J0131; J1756

== ENCOUNTER 2021-08-18 13:50 | Observation (INO) | payer OTHER, MEDICARE ==
[~2021-08-18] VITALS: Ht 188 cm; Wt 66.3 kg
[~2021-08-18 13:50] MED LIST changes: +DSS100 MG PO; +ELIQUIS2.5 MG PO; +IRON325 M1 PO; +MEDDOSEPAK PO; +PRILOSEC20 MG/CAP PO; +VITAMIN D1000 UNIT PO; +ZPAK PO
[2021-08-18 14:46] LABS: HEMATOCRIT 34.3 % (39.0-50.0); HEMOGLOBIN 10.6 g/dl (14.0-18.0); IMMATURE GRANULOCYTES 0.3 % (0.0-5.0); MEAN CORPUSCULAR HGB 33.8 pG CALC (26.0-32.0); MEAN CORPUSCULAR HGB CONC 30.9 g/dL CAL (32.0-36.0); NEUT# 6.79 thou/uL (1.82-7.42); RED BLOOD COUNT 3.14 mill/uL (4.70-6.10); RED CELL DISTRI WIDTH 15.6 % (11.5-15.5)
[2021-08-18 15:00] LABS: MEAN CELL VOLUME 109.2 fL CALC (80.0-100.0)
[2021-08-18 15:03] LABS: ALBUMIN 3.7 g/dL (3.2-5.0); POTASSIUM 5.1 mmol/l (3.5-5.1)
[2021-08-18 15:05] LABS: BILIRUBIN, TOTAL 0.6 mg/dL (0.0-1.4); CREATININE 6.4 mg/dL (0.7-1.3); TOTAL PROTEIN 7.4 g/dL (6.3-8.2)
[2021-08-18 16:16] LABS: URINE BILIRUBIN - DIPSTICK NEGATIVE (NEGATIVE); URINE BLOOD DIPSTICK SMALL (NEGATIVE); URINE COLOR YELLOW; URINE GLUCOSE - DIPSTICK NEGATIVE (NEGATIVE); URINE KETONE 15 mg/dL (NEGATIVE); URINE PH 7.5 (4.5-8.0); URINE PROTEIN - DIPSTICK 100 mg/dL (NEG-TRACE); URINE SPECIFIC GRAVITY 1.025; URINE UROBILINOGEN - DIPSTICK 0.2 E.U./dL (0.2)
[2021-08-18 16:18] LABS: URINE LEUK ESTERASE MODERATE (NEGATIVE); URINE NITRITE - DIPSTICK NEGATIVE (Negative)
[2021-08-18 16:20] LABS: URINE BACTERIA MANY hpf; URINE WBC TNTC WBC/hpf (0-5)
[2021-08-18] MEDS ORDERED: VENLAFAXINE HCL75 M1 PO (20:48)
[2021-08-18 21:01] VITALS: BP 146/82
[2021-08-19] VITALS: BP 127/78
[2021-08-19 04:00] VITALS: BP 131/83
[2021-08-19 08:50] VITALS: BP 143/85
[2021-08-19 10:36] VITALS: BP 123/81
[2021-08-19 12:01] LABS: HEMATOCRIT 30.6 % (39.0-50.0); HEMOGLOBIN 9.7 g/dl (14.0-18.0); IMMATURE GRANULOCYTES 0.7 % (0.0-5.0); MEAN CORPUSCULAR HGB 33.9 pG CALC (26.0-32.0); MEAN CORPUSCULAR HGB CONC 31.7 g/dL CAL (32.0-36.0); NEUT# 6.94 thou/uL (1.82-7.42); RED BLOOD COUNT 2.86 mill/uL (4.70-6.10); RED CELL DISTRI WIDTH 15.6 % (11.5-15.5)
[2021-08-19 12:25] LABS: CREATININE 5.6 mg/dL (0.7-1.3); POTASSIUM 5.5 mmol/l (3.5-5.1)
[2021-08-19 14:25] VITALS: BP 120/81
[2021-08-19 19:51] VITALS: BP 148/81
[2021-08-20] VITALS (7 sets, daily range): BP systolic 127–142; BP diastolic 63–87
[2021-08-20 06:05] LABS: HEMATOCRIT 32.1 % (39.0-50.0); IMMATURE GRANULOCYTES 0.4 % (0.0-5.0); MEAN CELL VOLUME 108.4 fL CALC (80.0-100.0); MEAN CORPUSCULAR HGB 33.8 pG CALC (26.0-32.0); MEAN CORPUSCULAR HGB CONC 31.2 g/dL CAL (32.0-36.0); NEUT# 7.57 thou/uL (1.82-7.42); RED BLOOD COUNT 2.96 mill/uL (4.70-6.10); RED CELL DISTRI WIDTH 15.8 % (11.5-15.5)
[2021-08-20 06:39] LABS: MAGNESIUM 2.1 mg/dL (1.6-2.3); POTASSIUM 4.9 mmol/l (3.5-5.1)
[2021-08-20 06:49] LABS: CREATININE 5.4 mg/dL (0.7-1.3)
[2021-08-21 04:00] VITALS: BP 130/61
[2021-08-21 05:49] LABS: ALBUMIN 2.6 g/dL (3.2-5.0); POTASSIUM 4.2 mmol/l (3.5-5.1)
[2021-08-21 06:05] LABS: CREATININE 5.4 mg/dL (0.7-1.3)
[2021-08-21 08:20] VITALS: BP 131/78
[2021-08-21 10:55] VITALS: BP 137/69
[2021-08-21] MEDS ORDERED: SODIUM BICAR650 MG PO (11:28)
[2021-08-21] MEDS ORDERED: MEROPENEM500 MG IV (11:28)
[2021-08-21 15:43] VITALS: BP 134/64
== END 2021-08-21 17:52 | DRG 689 ==
LOC: ED 13:50 → ED-I 18:50 → ED 19:15 → MS2 19:16
PROVIDERS: Family Medicine; Internal Medicine Nephrology; Nurse Practitioner; ADMIT Hospitalist; ATTEND Hospitalist
PROC: 0T9B70Z Drainage of Bladder with Drainage Device, Via Natural or Artificial Opening (ICD-10-PCS; principal; 2021-08-18)
PROC: 02HV33Z Insertion of Infusion Device into Superior Vena Cava, Percutaneous Approach (ICD-10-PCS; 2021-08-20)
PROC: B518ZZA Fluoroscopy of Superior Vena Cava, Guidance (ICD-10-PCS; 2021-08-20)
DX: N39.0 Urinary tract infection, site not specified (principal); K85.90 Acute pancreatitis without necrosis or infection, unspecified; N17.9 Acute kidney failure, unspecified; I12.0 Hypertensive chronic kidney disease with stage 5 chronic kidney disease or end stage renal disease; G91.9 Hydrocephalus, unspecified; R64 Cachexia; Z68.1 Body mass index [BMI] 19.9 or less, adult; N18.5 Chronic kidney disease, stage 5; Z16.12 Extended spectrum beta lactamase (ESBL) resistance; E87.2 Acidosis; E87.5 Hyperkalemia; D63.1 Anemia in chronic kidney disease; E86.9 Volume depletion, unspecified; J43.9 Emphysema, unspecified; I25.10 Atherosclerotic heart disease of native coronary artery without angina pectoris; I48.91 Unspecified atrial fibrillation; K56.41 Fecal impaction; R33.9 Retention of urine, unspecified; H35.30 Unspecified macular degeneration; Z98.2 Presence of cerebrospinal fluid drainage device; B96.1 Klebsiella pneumoniae [K. pneumoniae] as the cause of diseases classified elsewhere; Z87.891 Personal history of nicotine dependence; Z95.5 Presence of coronary angioplasty implant and graft; Z79.01 Long term (current) use of anticoagulants; Z20.822 Contact with and (suspected) exposure to COVID-19
CPT/HCPCS: J2185; Q5106 EC